=== PATIENT | male | born 1990 | race Caucasian/White ===

== ENCOUNTER 2018-01-25 21:21 | Emergency (ER) | payer OTHER ==
[2018-01-25] MEDS ORDERED: CYCLOBENZAPRINE 10MG PREPACK#3 BTL TAKEHOME ONE (22:57)
--- NOTE | 2018-01-25 22:57 | EDPHY ---
H & P Stated Complaint: LOW BACK PAIN LIFTING, OLD T-12, L-2,L-2 COMPRESSION FX Time Seen by Provider: 01/25/18 22:45 HPI/ROS: CHIEF COMPLAINT: Acute exacerbation of chronic low back pain HISTORY OF PRESENT ILLNESS: 27-year-old male with remote history of thoracic and lumbar fracture secondary to snowboarding injury, history of chronic back pain, he was moving a heavy object this afternoon when he felt immediate pain in his paraspinous lumbar region with bilateral lower extremity paresthesia. No incontinence. No retention. No saddle anesthesia. No direct trauma or fall. No abdominal pain. No fever or chills. PRIMARY CARE PROVIDER: REVIEW OF SYSTEMS: A ten point review of systems was performed and is negative with the exception of the items mentioned in the HPI PAST MEDICAL & SURGICAL HISTORY: chronic back pain secondary to multilevel vertebral fracture SOCIAL HISTORY:Nonsmoker PHYSICAL EXAM (Prior to examination, patient consented to physical exam, hands were washed and my usual and customary physical exam procedures followed) 1) GENERAL: Well-developed, well-nourished, alert and oriented. Appears uncomfortable when he is asked to move 2) HEAD: Normocephalic, atraumatic 3) HEENT: Pupils equal, round, reactive to light bilaterally. Sclera anicteric. Nasopharynx, oropharynx, clear, no lesions. 4) NECK: Full range of motion, no meningeal signs. 5) LUNGS: Clear auscultation bilaterally, no wheezes, no rhonchi, no retractions. 6) HEART: Regular rate and rhythm, no murmur, no heave, no gallop. 7) ABDOMEN: No guarding, no rebound, no focal tenderness, negative McBurney's, negative Fry's, negative Rovsing's, negative peritoneal sign, 8) MUSCULOSKELETAL: Moving all extremities, no focal areas of tenderness, no obvious trauma. No peripheral edema or discoloration. 9) BACK: tender to palpation paraspinous lumbar muscle. No CVA tenderness, no midline vertebral tenderness, no fluctuance, no step-off, no obvious trauma, no visual or palpable abnormality. Patella, Achilles reflexes intact to bilateral strength 5/5 10) SKIN: No rash, no petechiae. 11) NEURO: Awake, alert, and oriented to person, place and time. Answers questions appropriately. There were no obvious focal neurologic abnormalities. No cerebellar dysfunction. Normal steady gait. Upper and lower extremities bilaterally with strength 5 / 5, reflexes 2+.. DIFFERENTIAL DIAGNOSIS: In no particular order, including but not limited to, fracture, sprain/strain, cauda equina, spinal infectious etiology. MEDICAL DECISION MAKING Lower index of suspicion for cauda equina, epidural abscess, epidural hematoma, lumbar myositis, diskitis, as the patient is neurologically intact in the lower extremities, has patella and Achilles reflexes intact and equal bilaterally, has no neurologic deficits, no incontinence, no retention, no midline pain, no fluctuance, afebrile, no flulike symptoms. Pain may be secondary to muscular strain, may be secondary to discogenic etiology. At this point I do not identify definitive indication for emergent MRI, however patient may necessitate this on an outpatient basis. Patient given acute back pain precautions. Given spinal surgeon Dr. Kody Hernandez referral information. Patient verbalizes understanding of discharge instructions. I believe them be competent decision-makers. All questions and concerns have been addressed by me. Ample opportunity for questions have been provided . The patient understands that this diagnosis is provisional and can never be 100% accurate. Usual and customary warnings were given concerning the clinical impression and all the patient's questions were answered. The patient was instructed to return to the emergency department should her symptoms worsen or return, or develop any new symptoms, otherwise to followup as directed in discharge instructions. I saw this patient independently based on established practice protocols. Care of patient under supervision of secondary supervising physician Dr Shepherd . - Medical/Surgical History Hx Asthma: No Hx Chronic Respiratory Disease: No Hx Diabetes: No Hx Cardiac Disease: No Hx Renal Disease: No Hx Cirrhosis: No Hx Alcoholism: No Hx HIV/AIDS: No Hx Splenectomy or Spleen Trauma: No Other PMH: appy. R ankle fx and surgery. Bilateral wrist fx's. R femur fx. rib fx. T-12,L-2,L-3 COMPRESSION FX - Social History Smoking Status: Never smoked Constitutional: Initial Vital Signs Temperature (C) 36.7 C 01/25/18 21:24 Heart Rate 70 01/25/18 21:24 Respiratory Rate 16 01/25/18 21:24 Blood Pressure 124/83 H 01/25/18 21:24 O2 Sat (%) 96 01/25/18 21:24 O2 Delivery Mode Room Air Allergies/Adverse Reactions: codeine Allergy (Verified 01/25/18 21:26) morphine Allergy (Verified 01/25/18 21:26) Home Medications: Medication Instructions Recorded Cyclobenzaprine [Flexeril 10 MG 10 mg PO TID #15 tab 01/25/18 (RX)] methylPREDNISolone [Medrol Dose 4 mg PO DAILY #1 ea 01/25/18 Atul] Departure - Departure Disposition: Home, Routine, Self-Care Clinical Impression: acute exacerbation of lower back pain Condition: Good Instructions: Acute Low Back Pain (ED), Cyclobenzaprine (By mouth) Additional Instructions: Seek medical attention if you develop new or worsening pain, if you develop bladder or bowel dysfunction, numbness around your perineum, foot drop, or any other symptoms that concern you. Referrals: Kody Hernandez MD [Medical Doctor] - 2-3 days, call for appt. (Dr Hernandez is a spine surgeon) Prescriptions: Cyclobenzaprine [Flexeril 10 MG (RX)] 10 mg PO TID #15 tab methylPREDNISolone [Medrol Dose Atul] 4 mg PO DAILY #1 ea
[2018-01-25 23:10] VITALS: BP 112/76
== END 2018-01-25 23:10 | disposition home or self-care (01) ==
DX: M54.5 Low back pain (principal)